=== PATIENT | female | born 1945 | race Caucasian/White ===

== ENCOUNTER 2022-03-25 16:19 | Observation (INO) ==
[2022-03-25] MEDS ORDERED: Melatonin 3 MG TABLET PO PRN (20:39)
[2022-03-25] MEDS ORDERED: Ondansetron ODT 4 MG TAB.RAPDIS SL PRN (20:39)
[2022-03-25] MEDS ORDERED: Naloxone 0.4 MG/ML INJ IVP PRN (20:39)
[2022-03-25] MEDS ORDERED: Dextrose Gel 15 GM/37.5 ML TUBE PO PRN ×2 (20:42)
[2022-03-25] MEDS ORDERED: *HR* Dextrose 50 % in Water (Syg) 50 ML SYRINGE IVP PRN (20:42)
[2022-03-25] MEDS ORDERED: D5% in Water 1,000 ML IVC PRN (20:42)
[2022-03-25] MEDS ORDERED: Apixaban 5 MG TABLET PO SCH (21:00)
[2022-03-25] MEDS ORDERED: Perflutren Lipid Microsphere 1.3 ML in 0.9 % Sodium Chloride 8.7 ML IVP PRN (21:53)
[2022-03-26] MEDS: Insulin LISPRO 300 UNITS/3 ML VIAL SUBQ SCH ×5 (01:27→23:33)
[2022-03-26] MEDS ORDERED: *HR* Heparin 5,000 UNIT/ML VIAL IVP PRN ×2 (07:45)
[2022-03-26] MEDS ORDERED: *HR* Heparin 5,000 UNIT/ML VIAL IVP ONE (07:45)
[2022-03-26] MEDS ORDERED: Heparin 25,000UNIT/250ML 1/2NS 25,000 UNIT/250 ML IV.SOLN IVC SCH (07:45)
[2022-03-26] MEDS: Aspirin 81 MG TAB.CHEW PO SCH (08:33)
[2022-03-26] MEDS: Insulin DETEMIR 100 UNIT/ML X5UNITS SUBQ SCH ×2 (08:34→20:24)
[2022-03-26 09:14] LABS: Basophils % 0.6 %; Eosinophils # 0.1 K/mcL (0.0-0.6); Eosinophils % 1.4 %; Hematocrit 39.3 % (35.3-44.9); Hemoglobin 12.6 g/dL (11.5-15.4); Immature Granulocytes % 0.2 % (0-4); Lymphocytes # 0.9 K/mcL (0.6-4.6); Lymphocytes % 19.4 %; Mean Corpuscular HGB Conc 32.1 g/dL (31.6-35.5); Mean Corpuscular Hemoglobin 26.6 pg (28.0-33.3); Mean Corpuscular Volume 83.1 fL (83.0-100.0); Mean Platelet Volume 9.5 fL (9.4-12.4); Monocytes # 0.3 K/mcL (0.0-1.3); Monocytes % 5.4 %; Neutrophils # 3.5 K/mcL (1.6-8.9); Platelet Count 153 K/mcL (140-400); Red Blood Count 4.73 M/mcL (3.82-4.97); Red Cell Distribution Width 14.6 % (11.5-14.5); White Blood Count 4.9 K/mcL (4.3-11.1)
[2022-03-26] MEDS: Heparin 25,000UNIT/250ML 1/2NS 25,000 UNIT/250 ML IV.SOLN IVC SCH (09:21)
[2022-03-26 11:51] LABS: Albumin 3.7 g/dL (3.5-5.7); Albumin/Globulin Ratio 1.5 (1.1-2.2); Bilirubin,Total 0.6 mg/dL (0.3-1.0); Globulin 2.5 g/dL (2.4-3.5); Magnesium 2.2 mg/dL (1.6-2.6); Phosphorous 4.8 mg/dL (2.7-4.5); Potassium 4.1 mEq/L (3.5-5.1); Total Protein 6.2 g/dL (6.4-8.9); Troponin I 0.08 ng/mL (< 0.04)
[2022-03-27] MEDS ORDERED: Acetaminophen 325 MG TABLET PO ONE (00:52)
[2022-03-27] MEDS: Insulin LISPRO 300 UNITS/3 ML VIAL SUBQ SCH ×3 (06:16→17:09)
[2022-03-27] MEDS: Aspirin 81 MG TAB.CHEW PO SCH (08:04)
[2022-03-27] MEDS: Heparin 25,000UNIT/250ML 1/2NS 25,000 UNIT/250 ML IV.SOLN IVC SCH ×2 (08:11→20:43)
[2022-03-27] MEDS: Insulin DETEMIR 100 UNIT/ML X5UNITS SUBQ SCH ×2 (08:11→20:43)
[2022-03-27 15:25] LABS: Heparin anti-factor XA UFH 0.96 IU/mL (0.30-0.70)
[2022-03-27 16:05] LABS: Activated Partial Thrombo Time 87.4 Seconds (26.0-36.0)
[2022-03-27] MEDS: 0.9 % Sodium Chloride 1,000 ML IVC SCH (16:33)
[2022-03-27] MEDS: hydrALAZINE 25 MG TABLET PO SCH ×2 (16:33→20:43)
[2022-03-27] MEDS ORDERED: Gabapentin 100 MG CAPSULE PO SCH (21:00)
[2022-03-28] MEDS: Insulin LISPRO 300 UNITS/3 ML VIAL SUBQ SCH ×3 (00:06→11:36)
[2022-03-28 05:41] LABS: Basophils % 0.4 %; Eosinophils # 0.1 K/mcL (0.0-0.6); Hematocrit 35.7 % (35.3-44.9); Hemoglobin 11.6 g/dL (11.5-15.4); Immature Granulocytes % 0.4 % (0-4); Lymphocytes # 1.2 K/mcL (0.6-4.6); Lymphocytes % 24.7 %; Mean Corpuscular HGB Conc 32.5 g/dL (31.6-35.5); Mean Corpuscular Hemoglobin 26.7 pg (28.0-33.3); Mean Corpuscular Volume 82.1 fL (83.0-100.0); Mean Platelet Volume 9.1 fL (9.4-12.4); Monocytes # 0.3 K/mcL (0.0-1.3); Monocytes % 6.6 %; Neutrophils # 3.4 K/mcL (1.6-8.9); Platelet Count 145 K/mcL (140-400); Red Blood Count 4.35 M/mcL (3.82-4.97); Segmented Neutrophils % 66.9 %
[2022-03-28 06:04] LABS: Calcium 8.7 mg/dL (8.6-10.3); Potassium 3.7 mEq/L (3.5-5.1)
[2022-03-28 07:29] VITALS: TEMP 98
[2022-03-28] MEDS: Aspirin 81 MG TAB.CHEW PO SCH (08:55)
[2022-03-28] MEDS: Insulin DETEMIR 100 UNIT/ML X5UNITS SUBQ SCH (08:56)
[2022-03-28] MEDS: hydrALAZINE 25 MG TABLET PO SCH ×2 (08:56→14:44)
[2022-03-28] MEDS ORDERED: lisinopriL 20 MG TABLET PO SCH (09:00)
[2022-03-28] MEDS ORDERED: 0.9 % Sodium Chloride 2,000 ML ONE (11:30)
[2022-03-28] MEDS ORDERED: Nitroglycerin 1,000 MCG/5 ML VIAL IV ONE (11:30)
[2022-03-28] MEDS ORDERED: Iopamidol - 370 200 ML INFUS..BTL ONE (11:30)
[2022-03-28] MEDS ORDERED: *HR* Heparin 10,000 UNIT/10 ML VIAL ONE (11:30)
[2022-03-28] MEDS ORDERED: Heparin 1,000 UNITS/500 mL 500 ML ONE (11:30)
[2022-03-28] MEDS ORDERED: *HR* FentaNYL (PF) 100 MCG/2 ML VIAL ONE (12:36)
[2022-03-28] MEDS ORDERED: *HR* Midazolam HCl 2 MG/2 ML VIAL ONE (12:37)
[2022-03-28] MEDS ORDERED: 0.9 % Sodium Chloride 500 ML IVC SCH (13:45)
[2022-03-28] MEDS ORDERED: Metoprolol XL (24 HR) Succ 25 MG TAB.ER.24H PO SCH (14:00)
[2022-03-28] MEDS: 0.9 % Sodium Chloride 1,000 ML IVC SCH (14:28)
[2022-03-28 15:43] VITALS: BP 151/71; O2SAT 97
[2022-03-28 15:44] VITALS: PULSE 59
== END 2022-03-28 19:25 | disposition home or self-care (01) ==
LOC: 3BNU → SUATTDRO 19:30
PROVIDERS: ADMIT Family Medicine; ATTEND Registered Nurse